=== PATIENT | female | born 1990 | race Caucasian/White ===

== ENCOUNTER 2016-09-29 12:58 | Emergency (ER) | payer MEDICAID ==
[~2016-09-29] VITALS: Ht 152.4 cm; Wt 59.5 kg
[~2016-09-29 12:58] MED LIST: BIRTHCONTROL; NORCO 325 MG-51 TAB PO; PRENATAL1 TA1 PO
[2016-09-29 13:02] VITALS: BP 122/87; PULSE 102; TEMP 98.8
[2016-09-29] MEDS ORDERED: MONONESSA 35 MC1 TA1 PO (13:05)
[2016-09-29] MEDS ORDERED: PREDNISONE20 MG PO (14:37)
[2016-09-29] MEDS ORDERED: NORCO 325 MG-51 TAB PO ×2 (14:37→14:47)
== END 2016-09-29 14:48 | disposition home or self-care (01) ==
LOC: COL.ER 12:58
DX: L52 Erythema nodosum (principal)

== ENCOUNTER → 2017-08-20 | Outpatient (CLI) | payer MEDICAID ==
[~2017-08-20] VITALS: Ht 152.4 cm; Wt 60.9 kg
[~2017-08-20] MED LIST changes: +MONONESSA 35 MC1 TA1 PO; +PREDNISONE20 MG PO; +TRINESSA LO TA1 EACH PO
[2017-08-20 09:05] VITALS: BP 111/73; PULSE 95
[2017-08-20 10:45] VITALS: BP 126/83; PULSE 80
== END ==
LOC: COL.RAD 08-15 09:15
DX: E04.1 Nontoxic single thyroid nodule (principal); R59.0 Localized enlarged lymph nodes

== ENCOUNTER 2019-07-06 20:38 | Emergency (ER) | payer BC, MEDICAID ==
[~2019-07-06] VITALS: Ht 165.1 cm; Wt 76.4 kg
[2019-07-06 20:54] VITALS: TEMP 97.9
[2019-07-06] MEDS ORDERED: PRENATAL FORMU1 EAC3 PO (20:58)
[2019-07-06 22:44] LABS: BASO % 0.3 % (0.0-2.0); EOS # 0.1 (0.0-0.7); GRAN # 7.3 (1.4-6.5); GRAN % 70.6 % (42.2-75.2); HEMATOCRIT 37.2 % (37.0-47.0); HEMOGLOBIN 12.8 g/dl (12.5-16.0); LYMPH # 2.3 (1.2-3.4); LYMPH % 21.8 % (20.0-51.0); MEAN CELL VOLUME 83 fl (80.0-100.0); MEAN CORPUSCULAR HEMOGLOBIN 28 pg (27.0-31.0); MEAN CORPUSCULAR HGB CONC 34 g/dl (33.0-37.0); MEAN PLATELET VOLUME 9.1 fl (7.4-10.4); MONO # 0.6 (0.1-0.6); MONO % 5.7 % (1.7-9.3); PLATELET COUNT 304 K/mm3 (130-400)
[2019-07-06] MEDS ORDERED: TYLENOL 500MG500 MG PO (22:48)
[2019-07-06 22:57] LABS: COLLECTION METHOD CLEAN CATCH
[2019-07-06 22:58] LABS: ALBUMIN 4.1 gm/dL (3.5-5.0); BILIRUBIN,TOTAL 0.2 mg/dL (0.0-1.0); CALCIUM 9.6 mg/dL (8.4-10.2); CREATININE, serum 0.34 (0.52-1.25); POTASSIUM 3.4 mmol/L (3.4-5.0); TOTAL PROTEIN 7.5 gm/dL (6.4-8.2)
[2019-07-06 23:04] LABS: MUCOUS Present /lpf; PH 7 (5-8); SQUAMOUS EPITHELIAL 0-2 /hpf; URINE APPEARANCE Cloudy; URINE BACTERIA None Seen /hpf; URINE BILIRUBIN Negative (NEGATIVE); URINE BLOOD 2+ (NEGATIVE); URINE COLOR Yellow; URINE GLUCOSE Negative (NEGATIVE); URINE KETONE Negative (NEGATIVE); URINE LEUKOCYTE ESTERASE Negative (NEGATIVE); URINE NITRATE Negative (NEGATIVE); URINE PROTEIN(semi-quant) Negative (NEGATIVE); URINE UROBILINOGEN >=4.0 mg/dL (NEGATIVE)
[2019-07-07] MEDS ORDERED: MACROBID 1100 MG/CAP PO (00:45)
[2019-07-07 01:22] VITALS: BP 109/70; PULSE 105
== END 2019-07-07 01:22 | disposition home or self-care (01) ==
LOC: COL.ER 20:38
PROVIDERS: Nurse Practitioner
DX: O46.91 Antepartum hemorrhage, unspecified, first trimester (principal); Z3A.13 13 weeks gestation of pregnancy; Z87.891 Personal history of nicotine dependence
CPT/HCPCS: J1200; J2765; J7030

== ENCOUNTER 2020-01-06 17:16 | Inpatient (IN) | payer BC, MEDICAID ==
[2020-01-06] VITALS (25 sets, daily range): BP systolic 95–136; BP diastolic 50–84; PULSE 83–125; TEMP 97.5–97.9
[~2020-01-06] VITALS: Ht 165.1 cm; Wt 82.3 kg
[~2020-01-06 17:16] MED LIST changes: +MACROBID 1100 MG/CAP PO; +PRENATAL FORMU1 EAC3 PO; +TYLENOL 500MG500 MG PO
--- NOTE | 2020-01-06 17:25 | NUR ---
Patient ambulatory onto unit with at side stating "my water broke". Patient changes into gown, oriented to room, plan of care discussed. Patient reports SROM at 1600. Reports good movement and occasional contractions, denies vaginal bleeding. EFMs on. VS taken. SVE 4/90/-2, clear fluid noted with exam. AmniTrace+. notified, orders received. IV started to left hand at 1750, labs drawn and LR infusing. Pen G started at 1800 per orders for GBS+. Admission assessment completed.
[2020-01-06 18:11] LABS: BASO % 0.2 % (0.0-2.0); EOS # 0.1 (0.0-0.7); EOS % 0.6 % (0-4.0); GRAN # 9.4 (1.4-6.5); GRAN % 78.4 % (42.2-75.2); HEMOGLOBIN 12.9 g/dl (12.5-16.0); LYMPH # 1.9 (1.2-3.4); LYMPH % 15.9 % (20.0-51.0); MEAN CELL VOLUME 88 fl (80.0-100.0); MEAN CORPUSCULAR HEMOGLOBIN 27 pg (27.0-31.0); MEAN CORPUSCULAR HGB CONC 31 g/dl (33.0-37.0); MEAN PLATELET VOLUME 9.6 fl (7.4-10.4); MONO # 0.5 (0.1-0.6); MONO % 4.2 % (1.7-9.3); PLATELET COUNT 245 K/mm3 (130-400); RED BLOOD COUNT 4.75 M/mm3 (4.10-5.30); REDCELL DISTRIBUTION WIDTH-CV 13.6 % (11.5-14.5)
--- NOTE | 2020-01-06 18:20 | NUR ---
Report given to Farshad RN to assume care of patient at this time.
--- NOTE | 2020-01-06 18:45 | NUR ---
Consents reviewed and signed with patient and spouse. All questions answered.
--- NOTE | 2020-01-06 19:10 | NUR ---
1909 - CHARITY Samayoa at bedside for epidural placement. Pt repositioned to sitting on edge of bed. Epidural procedure, risks, and benefits explained to patient, pt verbalized understanding. 1921 - Test dose by CHARITY Samayoa at this time, pt denies any adverse reactions. 1924 - Dr. Rodriguez at bedside to discuss plan of care with patient. Pt repositioned to wedge left with pillow support. 1929 - SVE by Dr. Rodriguez at this time. 5/80/-2. Pitocin increased to 4 mu/min.
--- NOTE | 2020-01-06 19:41 | NUR ---
Late deceleration down to 90 bpm. Pt repositioned to wedge right. Monitors adjusted. Return to baseline of 145 bpm after about 3 minutes.
--- NOTE | 2020-01-06 20:05 | NUR ---
Barnard placed to dependent drainage at this time. Clear, yellow urine returned. Secured to leg with tape. SVE /-2
--- NOTE | 2020-01-06 21:00 | NUR ---
Dr. Rodriguez at bedside. SVE /-2. Pitocin increased to 12 mu/min. Peanut ball placed, wedge left position.
--- NOTE | 2020-01-06 21:20 | NUR ---
Pt appears to be very uncomfortable despite epdirual and states epidural doesn't feel like its working at all. Has pushed [employer] bolus button 3 times and tried position changes. CHARITY Samayoa at bedside to evaluate and discuss plan of care options.
--- NOTE | 2020-01-06 21:30 | NUR ---
2129 - CHARITY Samayoa at bedside to redo epidural. Pt in right lying position and agreeable to procedure. 2135 - Test dose by CHARITY Samayoa. Pt denies any adverse reactions. 2144 - Dr. Rodriguez at bedside. SVE . Pt to right lateral position for comfort with peanut ball.
--- NOTE | 2020-01-06 22:42 | NUR ---
2229 - Dr. Rodriguez at bedside. SVE 100/0. Initial push at this time. 2231 - Variable deceleration down to [address] Rodriguez remains at bedside. Room set up for delivery. 2234 - Dr. Rodriguez gowned and gloved at perineum. Pt continues to push well with contractions. FHR baseline returned to 120 bpm. 2239 - Pt continues to push well with contractions. Nursery RN, Sindhu Dotson at bedside. 2241 - Spontaneous vaginal delivery of viable infant girl. placed on mothers abdomen. Cord clamped x [address] Rodriguez and cut by FOB. Care of assumed to NADYA Mattson. Pitocin off. Cord blood obtained. 2246 - Delivery of intact placenta. Pitocin restarted at 333 mL/min per protocol. Fundus firm and down 2 from umbilicus. Repair of 1st degree perineal laceration by Dr. Rodriguez. 2299 - Pericare provided. New chux beneath patient. Ice pack to perineum. Pt repositioned in bed for comfort. recovery started. Epidural off. See physician delivery note.
[2020-01-07] VITALS (8 sets, daily range): BP systolic 105–138; BP diastolic 52–88; PULSE 82–110; TEMP 97.8–98.4
--- NOTE | 2020-01-07 01:15 | NUR ---
Pt able to lift and hold each leg off of bed for 5 seconds. Pt positioned to sitting on edge of bed. Epidural catheter removed. Tip smooth, blue, and intact. Pt tolerated well. Pt able to ambulate to bathroom independently. Pt able to void 500 mL. Pericare explained and provided. Mesh panties and peripad applied. New gown on. Pt transferred to room 208 by wheelchair for comfort with belongings and .
[2020-01-07] MEDS ORDERED: IBU800 M1 PO (16:37)
[2020-01-08 07:59] VITALS: BP 112/84; PULSE 82; TEMP 97.8
[2020-01-08] MEDS ORDERED: PERCOCET 325 MG1 TA2 PO (09:30)
== END 2020-01-08 10:35 | disposition home or self-care (01) | DRG 807 ==
LOC: LDRO 17:16 → LDR 17:25 → OB 17:25
PROVIDERS: Obstetrics & Gynecology; ADMIT Obstetrics & Gynecology
PROC: 10E0XZZ Delivery of Products of Conception, External Approach (ICD-10-PCS; principal; 2020-01-06)
PROC: 10D17Z9 Manual Extraction of Products of Conception, Retained, Via Natural or Artificial Opening (ICD-10-PCS; 2020-01-06)
PROC: 0HQ9XZZ Repair Perineum Skin, External Approach (ICD-10-PCS; 2020-01-06)
DX: O42.02 Full-term premature rupture of membranes, onset of labor within 24 hours of rupture (principal); Z37.0 Single live birth; Z3A.39 39 weeks gestation of pregnancy; F41.8 Other specified anxiety disorders; O99.344 Other mental disorders complicating childbirth; O99.62 Diseases of the digestive system complicating childbirth; K21.9 Gastro-esophageal reflux disease without esophagitis; O99.824 Streptococcus B carrier state complicating childbirth; O62.0 Primary inadequate contractions; O70.0 First degree perineal laceration during delivery; O73.1 Retained portions of placenta and membranes, without hemorrhage
CPT/HCPCS: J2405; J2540; J2590; J7120

== ENCOUNTER → 2020-07-19 | Outpatient (CLI) | payer MEDICAID ==
[~2020-07-19] MED LIST changes: +IBU800 M1 PO; +PERCOCET 325 MG1 TA2 PO
== END ==
LOC: ZCOL.LAB 07:45
DX: B34.9 Viral infection, unspecified (principal); Z20.828 Contact with and (suspected) exposure to other viral communicable diseases

== ENCOUNTER 2020-12-07 11:26 | Emergency (ER) | payer BC ==
[~2020-12-07] VITALS: Ht 152.4 cm; Wt 81.8 kg
[2020-12-07 11:28] VITALS: TEMP 97.9
[2020-12-07] MEDS ORDERED: LEXAPRO 10MG10 MG PO (11:41)
[2020-12-07] MEDS ORDERED: NORCO 325 MG-51 TAB PO (13:23)
[2020-12-07 13:47] VITALS: BP 132/80; PULSE 93
== END 2020-12-07 13:55 | disposition home or self-care (01) ==
LOC: COL.ER 11:26
DX: S82.851A Displaced trimalleolar fracture of right lower leg, initial encounter for closed fracture (principal); S82.871A Displaced pilon fracture of right tibia, initial encounter for closed fracture; F17.210 Nicotine dependence, cigarettes, uncomplicated; W01.198A Fall on same level from slipping, tripping and stumbling with subsequent striking against other object, initial encounter
CPT/HCPCS: J3010